=== PATIENT | female | born 1970 | race Caucasian/White ===

== ENCOUNTER 2018-06-03 07:14 | Day surgery (SDC) | payer BC ==
[2018-05-31 12:42] LABS: BASOPHILS % (AUTO) 0.7 % (0-1); EOSINOPHILS # (AUTO) 0.2 X10'3 (0-0.9); EOSINOPHILS % (AUTO) 3.1 % (0-6); LYMPHOCYTES # (AUTO) 1.3 X10'3 (1.1-4.8); LYMPHOCYTES % (AUTO) 23.2 % (21-51); MEAN CORPUSCULAR HEMOGLOBIN 20.3 PG (27.0-31.0); MEAN CORPUSCULAR HGB CONC 30.8 % (33.0-36.5); MEAN CORPUSCULAR VOLUME 65.8 FL (78-98); MEAN PLATELET VOLUME 8.3 FL (7.4-10.4); MONOCYTES # (AUTO) 0.4 X10'3 (0-0.9); MONOCYTES % (AUTO) 7.4 % (2-12); NEUTROPHILS # (AUTO) 3.6 X10'3 (1.8-7.7); NEUTROPHILS % (AUTO) 65.6 % (42-75); PRE OP HEMATOCRIT 33.7 % (35.0-45.0); PRE OP PLATELET COUNT 331 X10'3 (140-440); RED BLOOD COUNT 5.12 X10'6 (4.20-5.60); RED CELL DISTRIBUTION WIDTH 24.1 % (11.5-14.5)
[2018-05-31 12:46] LABS: PRE OP HEMOGLOBIN 10.4 g/dL (12.0-16.0)
[2018-05-31 12:55] LABS: ALBUMIN 3.7 G/DL (3.4-5.0); ALKALINE PHOSPHATASE 84 IU/L (46-116); BLOOD UREA NITROGEN 9 MG/DL (7-18); BUN/CREATININE RATIO 9.7 (6.6-38.0); CALCIUM 8.8 MG/DL (8.5-10.1); CHLORIDE 104 MMOL/L (99-107); CREATININE 0.93 MG/DL (0.40-0.90); PRE OP ALT 29 U/L (30-65); PRE OP ANION GAP 11 (8-16); PRE OP AST 15 U/L (10-37); PRE OP BILIRUB, TOTAL 0.2 MG/DL (0.0-1.0); PRE OP GLUCOSE 68 MG/DL (70-104); PRE OP POTASSIUM 3.4 MMOL/L (3.4-5.1); PRE OP SODIUM 140 MMOL/L (135-145); TOTAL CARBON DIOXIDE 25.4 MMOL/L (24-32); TOTAL PROTEIN 7.5 G/DL (6.4-8.2); eGFR 65 ML/MIN
[2018-05-31 12:56] LABS: HCG SERUM QL NEGATIVE
[2018-05-31 13:07] LABS: ANISOCYTOSIS 3+; MICROCYTOSIS 2+; PLATELET ESTIMATE NORMAL
[2018-05-31 13:08] LABS: HYPOCHROMASIA 1+; POLYCHROMASIA 1+
[2018-06-03] VITALS (18 sets, daily range): BP systolic 107–150; BP diastolic 57–95
[~2018-06-03] VITALS: Ht 177.8 cm; Wt 105.4 kg
[~2018-06-03 07:14] MED LIST: FERR325T28 PO; PROG100C6 PO; ceFOXitin 2 GM ADDvantage bag 100 ML IV ONE; famotidine 20mg tablet PO ONE; ringers solution, lacted 1,000 ML IV SCH
[2018-06-03] MEDS ORDERED: BUPIVAcaine/PF 2.5mg/ml (0.25%) 10ml vial ONE (08:57)
[2018-06-03] MEDS ORDERED: ROPIVAcaine 0.5% (5mg/ml) 30ml vial ONE (09:06)
[2018-06-03] MEDS ORDERED: dexamethasone sod phosphate 10mg/ml inj ONE (09:17)
[2018-06-03] MEDS ORDERED: sevoflurane 250ml liquid IH ONE (09:17)
[2018-06-03] MEDS ORDERED: fluconazole in saline, iso-osm 100mg/50ml Premix IV ONE (09:17)
[2018-06-03] MEDS ORDERED: midazolam 2 mg/2 ml injection ONE (09:23)
[2018-06-03] MEDS ORDERED: fentaNYL /PF 50mcg/ml 5ml ampule ONE (09:23)
[2018-06-03] MEDS ORDERED: propofol inj 20 ML IV ONE (09:35)
[2018-06-03] MEDS ORDERED: rocuronium 10mg/ml inj IV ONE ×2 (09:35→12:25)
[2018-06-03] MEDS ORDERED: LIDOcaine 2% (20mg/ml) 5ml vial ONE (09:35)
[2018-06-03] MEDS ORDERED: ringers solution, lacted 1,000 ML IV SCH (10:13)
[2018-06-03] MEDS ORDERED: meperidine/PF 25mg/ml syringe IV PRN ×3 (10:15)
[2018-06-03] MEDS ORDERED: proCHLORperazine 10 MG/2 ml inj IV PRN (10:15)
[2018-06-03] MEDS ORDERED: ondansetron/PF 4mg/2ml inj IV PRN ×2 (10:15→11:50)
[2018-06-03] MEDS ORDERED: morphine 4 MG/ML inj SYRINge IV PRN ×2 (10:15)
[2018-06-03] MEDS: ringers solution, lacted 1,000 ML IV SCH ×2 (11:46→19:43)
[2018-06-03] MEDS ORDERED: sugammadex 200mg/2ml injection IV ONE (11:49)
[2018-06-03] MEDS ORDERED: mag hydrox/Alum hydrox/simeth 30ml oral suspension PO PRN (11:50)
[2018-06-03] MEDS ORDERED: ketorolac trometh. 30mg/ml inj. IV PRN (11:50)
[2018-06-03] MEDS ORDERED: normal saline 500ml IV soln 500 ML IV PRN (11:50)
[2018-06-03] MEDS ORDERED: LORazepam 2 mg/ml vial IV PRN (11:50)
[2018-06-03] MEDS ORDERED: naloxone 0.4 mg/ml inj IV PRN (11:50)
[2018-06-03] MEDS ORDERED: CADD PCA waste documentation MC PRN (11:50)
[2018-06-03] MEDS ORDERED: metoclopramide 5 mg/ml inj IV PRN (11:50)
[2018-06-03] MEDS ORDERED: temazepam 15mg capsule PO PRN (11:50)
[2018-06-03] MEDS ORDERED: diphenhydrAMINE 50 mg/ml inj IV PRN (11:50)
[2018-06-03] MEDS ORDERED: magnesium hydroxide 30ml (MOM) UD suspension PO PRN (11:50)
[2018-06-03] MEDS ORDERED: meperidine/PF 50mg/ml syringe ONE (11:51)
[2018-06-03] MEDS ORDERED: oxyCODONE/APAP 5-325mg tablet PO PRN ×2 (11:55)
[2018-06-03] MEDS: HYDROmorphone/NS 1 mg/ml CADD 50 ML IV SCH ×6 (12:22→23:00)
[2018-06-03] MEDS ORDERED: neostigmine methylsulfate 1 MG/ML 10ml vial ONE (12:26)
[2018-06-03] MEDS ORDERED: ondansetron/PF 4mg/2ml inj ONE (12:26)
[2018-06-03] MEDS ORDERED: glycopyrrolate 0.2mg/ml inj ONE (12:26)
[2018-06-03] MEDS: simethicone 80mg chew tab PO SCH ×2 (13:43→19:30)
[2018-06-03] MEDS: docusate sod 100mg capsule PO SCH (20:00)
[2018-06-04] VITALS: BP 142/83
[2018-06-04] MEDS: HYDROmorphone/NS 1 mg/ml CADD 50 ML IV SCH ×6 (01:00→11:00)
[2018-06-04] MEDS: ringers solution, lacted 1,000 ML IV SCH (03:12)
[2018-06-04 05:59] LABS: BASOPHILS % (AUTO) 0.3 % (0-1); EOSINOPHILS # (AUTO) 0.2 X10'3 (0-0.9); EOSINOPHILS % (AUTO) 1.8 % (0-6); HEMATOCRIT 30.4 % (35.0-45.0); HEMOGLOBIN 9.3 g/dl (12.0-16.0); LYMPHOCYTES # (AUTO) 1.2 X10'3 (1.1-4.8); LYMPHOCYTES % (AUTO) 10.8 % (21-51); MEAN CORPUSCULAR HGB CONC 30.6 % (33.0-36.5); MEAN CORPUSCULAR VOLUME 65.6 FL (78-98); MEAN PLATELET VOLUME 8.6 FL (7.4-10.4); MONOCYTES # (AUTO) 0.7 X10'3 (0-0.9); MONOCYTES % (AUTO) 6.3 % (2-12); NEUTROPHILS # (AUTO) 9.2 X10'3 (1.8-7.7); NEUTROPHILS % (AUTO) 80.8 % (42-75); PLATELET COUNT 274 X10'3 (140-440); RED BLOOD COUNT 4.64 X10'6 (4.20-5.60); RED CELL DISTRIBUTION WIDTH 24.3 % (11.5-14.5); WHITE BLOOD COUNT 11.4 X10'3 (4.5-11.0)
[2018-06-04 06:20] LABS: ALANINE AMINOTRANSFERASE 25 U/L (12-78); ALBUMIN 3.1 G/DL (3.4-5.0); ALKALINE PHOSPHATASE 78 IU/L (46-116); ANION GAP 8 (8-16); ASPARTATE AMINO TRANSFERASE 12 U/L (10-37); BILIRUBIN,TOTAL 0.4 MG/DL (0.1-1.0); BLOOD UREA NITROGEN 7 MG/DL (7-18); BUN/CREATININE RATIO 7.9 (6.6-38.0); CALCIUM 8.9 MG/DL (8.5-10.1); CHLORIDE 106 MMOL/L (99-107); CREATININE 0.89 MG/DL (0.40-0.90); GLUCOSE 114 MG/DL (70-104); SODIUM 139 MMOL/L (135-145); TOTAL CARBON DIOXIDE 24.8 MMOL/L (24-32); TOTAL PROTEIN 6.3 G/DL (6.4-8.2); eGFR 68 ML/MIN
[2018-06-04 07:56] LABS: ANISOCYTOSIS 3+; ELLIPTOCYTES FEW; HYPOCHROMASIA 2+; MICROCYTOSIS 2+; PLATELET ESTIMATE NORMAL; POLYCHROMASIA 1+
[2018-06-04] MEDS: docusate sod 100mg capsule PO SCH (08:55)
[2018-06-04] MEDS: simethicone 80mg chew tab PO SCH (08:55)
== END 2018-06-04 11:27 | disposition home or self-care (01) ==
LOC: PAS 07:14 → SUR 3N 11:46 → PAS 06-04 11:27
PROVIDERS: ATTEND Obstetrics & Gynecology
DX: N80.0 Endometriosis of uterus (principal); D25.1 Intramural leiomyoma of uterus; N72 Inflammatory disease of cervix uteri; N92.1 Excessive and frequent menstruation with irregular cycle; E66.9 Obesity, unspecified; Z87.09 Personal history of other diseases of the respiratory system; Z68.33 Body mass index [BMI] 33.0-33.9, adult; Z86.2 Personal history of diseases of the blood and blood-forming organs and certain disorders involving the immune mechanism; Z72.89 Other problems related to lifestyle; Z79.899 Other long term (current) drug therapy; Z98.890 Other specified postprocedural states; Z80.3 Family history of malignant neoplasm of breast; Z81.8 Family history of other mental and behavioral disorders; Z83.79 Family history of other diseases of the digestive system; Z82.69 Family history of other diseases of the musculoskeletal system and connective tissue; Z80.1 Family history of malignant neoplasm of trachea, bronchus and lung; Z80.0 Family history of malignant neoplasm of digestive organs; Z83.3 Family history of diabetes mellitus; Z82.49 Family history of ischemic heart disease and other diseases of the circulatory system
CPT/HCPCS: 36415; 58554; 80053; 84703; 85025; 86885; 86900; 86901; C9399; J0694; J1170; J2001; J2175; J2250; J2405; J2704; J2710; J3010; J3490; J7120; A6250; A7000; C1758; G0378; J1100; J1450; J2795